=== PATIENT | male | born 1940 | race African-American/Black ===

== ENCOUNTER 2020-11-05 14:07 | Emergency (ER) | payer OTHER ==
[~2020-11-05] VITALS: Ht 185.4 cm; Wt 90.0 kg
[2020-11-05 15:10] LABS: CHLORIDE 111 mEq/L (98-107)
[2020-11-05 15:19] LABS: BASOPHILS % 0.3 % (0.0-2.0); EOSINOPHILS % 0.5 % (0.0-5.0); HEMATOCRIT. 38.5 % (42.0-52.0); HEMOGLOBIN. 12.8 g/dL (14.0-18.0); LYMPHOCYTES % 44.4 % (20.0-50.0); MEAN PLATELET VOLUME 8.5 fl (7.4-10.4); NEUTROPHILS % 46.8 % (40.0-76.0); PLATELET 126 x1000/uL (130-400); RED BLOOD CELL COUNT 4.42 mill/uL (4.7-6.1); RED CELL DISTRIBUTION WIDTH 13.4 % (11.6-14.6)
[2020-11-05] MEDS ORDERED: SODIUM CHLORIDE 0.9% 1,000 ML IV ONE (16:00)
[2020-11-05 16:34] LABS: CLARITY URINE CLEAR (CLEAR); COLOR URINE YELLOW (YELLOW); KETONES URINE NEGATIVE (NEGATIVE); LEUKOCYTE ESTERASE URINE NEGATIVE (NEGATIVE); NITRITE URINE NEGATIVE (NEGATIVE); OCCULT BLOOD URINE NEGATIVE (NEGATIVE); PH URINE 6.5 (4.5-8.0); PROTEIN URINE TRACE (NEGATIVE); SPECIFIC GRAVITY URINE 1.019 (1.005-1.030)
[2020-11-05] MEDS ORDERED: CLONIDINE 0.1MG TABLET PO ONE (19:00)
[2020-11-05 19:16] VITALS: BP 175/90
== END 2020-11-05 19:17 | disposition short-term general hospital (02) ==
LOC: ER 14:24 → CANBEDREQ 20:31
DX: R55 Syncope and collapse (principal); N17.9 Acute kidney failure, unspecified; I10 Essential (primary) hypertension; I25.10 Atherosclerotic heart disease of native coronary artery without angina pectoris; E11.9 Type 2 diabetes mellitus without complications; Z95.0 Presence of cardiac pacemaker
CPT/HCPCS: 36415; 71045; 80053; 81003; 83880; 84484; 85025; 93005; 96360; 96361; 99285